=== PATIENT | female | born 1975 | race Two or more races ===

== ENCOUNTER 2017-07-26 06:31 | Day surgery (SDC) | payer BC ==
[~2017-07-26] VITALS: Ht 167.6 cm; Wt 104.3 kg
[2017-07-26] VITALS (10 sets, daily range): BP systolic 108–137; BP diastolic 62–82
[2017-07-26] MEDS ORDERED: LR 1000ml 1,000 ML IVLG SCH ×2 (07:00→09:23)
[2017-07-26] MEDS ORDERED: BUTALB-ACETAMI1 EAC1 PO (07:17)
[2017-07-26] MEDS ORDERED: MAXALT10 MG PO (07:17)
[2017-07-26] MEDS ORDERED: Propofol 200mg/20ml IV ONE (08:00)
[2017-07-26] MEDS ORDERED: fentaNYL 100 mcg/2 mL IV ONE (08:00)
[2017-07-26] MEDS ORDERED: Midazolam 2mg/2ml Inj ONE (08:00)
[2017-07-26] MEDS ORDERED: LR 1000ml ONE (08:00)
--- NOTE | 2017-07-26 09:04 | Pre-Procedure Note/Attestation ---
Pre-Procedure Note/Attestation Complete Prior to Procedure Planned Procedure: not applicable Procedure Narrative: Colon Indications for Procedure Pre-Operative Diagnosis: Screening, stool urgency and frequency Attestation I attest that I discussed the nature of the procedure; its benefits; risks and complications; and alternatives (and the risks and benefits of such alternatives ), prior to the procedure, with the patient (or the patient's legal farm loan representative). I attest that, if there was a reasonable possibility of needing a blood transfusion, the patient (or the patient's legal farm loan representative) was given the [facility] standardized written summary, pursuant to the Nikolai W[place]zek[place] Blood Safety Act ([place] Health and Safety Code # 1645, as amended). I attest that I re-evaluated the patient just prior to the surgery and that there has been no change in the patient's H&P, except as documented below: Vicente Dillon MD Jul 26, 2017 09:03
--- NOTE | 2017-07-26 09:06 | Short Stay Surgery H&P ---
History of Present Illness History of Present Illness HPI Mayco Solorio is a 41 year old female who was admitted on for Hx Of Colon Cancer Patient History Allergies: Coded Allergies: CEPHALEXIN (Verified Adverse Reaction, Severe, 07/26/17) DIARRHEA,ABD PAIN Medication History Scheduled Butalb/Acetaminophen/Caffeine (Rnfaoc-[place]-Yuse 50-325-40), 1 EACH PO NEEDED, (Reported) Rizatriptan Benzoate (Maxalt), 10 MG PO NEEDED, (Reported) Medication History Narrative See typed H&P Physical Exam Vital Signs Last Vital Signs Date Time Temp Pulse Resp B/P (MAP) Pulse Ox O2 Delivery O2 Flow Rate FiO2 07/26/17 07:21 98.4 66 20 118/73 98 Room Air 98.4 Labs Laboratory Tests Test 07/26/17 06:40 Urine HCG, Qualitative Negative (NEGATIVE) Plan Attestation Are the patient's medical conditions optimized for surgery? Vicente Dillon MD Jul 26, 2017 09:06
--- NOTE | 2017-07-26 09:19 | Anethesia Preoperative Eval ---
Anesthesia Pre-op PMH/ROS General Date of Evaluation: Jul 26, 2017 Time of Evaluation: 08:56 Anesthesiologist: Jaylon ASA Score: ASA 2 Mallampati Score Class I : Soft palate, uvula, fauces, pillars visible Class II: Soft palate, uvula, fauces visible Class III: Soft palate, base of uvula visible Class IV: Only hard plate visible Mallampati Classification: Class III Surgeon: Alma Diagnosis: Abdominal pain Surgical Procedure: Colonoscopy Anesthesia History: none Family History: no anesthesia problems Allergies: Coded Allergies: CEPHALEXIN (Verified Adverse Reaction, Severe, 07/26/17) DIARRHEA,ABD PAIN Medications: see eMAR Past Medical History Cardiovascular: Denies: HTN, CAD, [place], valve dz, arrhythmia, other Pulmonary: Denies: asthma, COPD, ENA, other Gastrointestinal/Genitourinary: Reports: GERD; Denies: CRI, ESRD, other Neurologic/Psychiatric: Reports: depression/anxiety; Denies: dementia, CVA, TIA, other Endocrine: Denies: DM, hypothyroidism, steroids, other HEENT: Denies: cataract (L), cataract (R), glaucoma, [place] (L), [place] (R), other Hematology/Immune: Denies: anemia, DVT, bleeding disorder, other Musculoskeletal/Integumentary: Denies: OA, RA, DJD, DDD, edema, other Other: obesity PMH Narrative: as above PSxH Narrative: Anesthesia Pre-op Phys. Exam Physician Exam Last Vital Signs Date Time Temp Pulse Resp B/P (MAP) Pulse Ox O2 Delivery O2 Flow Rate FiO2 07/26/17 07:21 98.4 66 20 118/73 98 Room Air 98.4 Constitutional: NAD Neurologic: CN 2-12 intact Cardiovascular: RRR, no M/R/G Respiratory: CTA Gastrointestinal: other - obesity Airway Exam Mallampati Score: Class III MO: limited Neck: short ROM: full Teeth: intact Dentures: no upper, no lower Anesthesia Pre-op A/P Labs Urine Test Test 07/26/17 06:40 Urine HCG, Qualitative Negative (NEGATIVE) Risk Assessment & Plan Assessment: ASA 2 Plan: MAC Pre-Antibiotics Drug: none Freddie Iyer MD Jul 26, 2017 09:19
[2017-07-26] MEDS ORDERED: fentaNYL 100 mcg/2 mL IV PRN (09:22)
[2017-07-26] MEDS ORDERED: DiphenhydrAMINE 50mg/ml Inj IVP PRN (09:23)
--- NOTE | 2017-07-26 10:22 | Immediate Post-Op Evaluation ---
Immediate Post-Op Evalulation Immediate Post-Op Evalulation Procedure: Colonoscopy, polypectomy Date of Evaluation: Jul 26, 2017 Time of Evaluation: 10:21 IV Fluids: 800 Blood Products: none Estimated Blood Loss: none Urinary Output: none Blood Pressure Systolic: 102 Blood Pressure Diastolic: 56 Pulse Rate: 67 Respiratory Rate: 20 O2 Sat by Pulse Oximetry: 99 Temperature (Fahrenheit): 97.6 Pain Score (1-10): 2 Nausea: No Vomiting: No Complications none Patient Status: awake, patent, none Hydration Status: adequate Freddie Iyer MD Jul 26, 2017 10:22
--- NOTE | 2017-07-26 11:47 | 48 Hour Post Anesthesia Eval ---
Post Anesthesia Evaluation Procedure: Colonoscopy, polypectomy Date of Evaluation: Jul 26, 2017 Time of Evaluation: 11:46 Blood Pressure Systolic: 128 0: 62 Pulse Rate: 74 Respiratory Rate: 22 Temperature (Fahrenheit): 97.6 O2 Sat by Pulse Oximetry: 98 Airway: patent Nausea: No Vomiting: No Pain Intensity: 1 Hydration Status: adequate Cardiopulmonary Status: stable Mental Status/LOC: patient returned to baseline Follow-up Care/Observations: n/a Post-Anesthesia Complications: none Follow-up care needed: ready to discharge Freddie Iyer MD Jul 26, 2017 11:47
--- NOTE | 2017-07-26 23:15 | Operative Note - Dictated ---
DATE OF OPERATION: 07/26/2017 PROCEDURES: Colonoscopy with biopsy, Endoclip placement, and snare polypectomy. SURGEON: Vicente Dillon M.D. ANESTHESIA: Please see the separate anesthesiologist notes for details. PRE-ENDOSCOPIC DIAGNOSES: 1. Screening colonoscopy. 2. Stool urgency and frequency, rule out inflammatory bowel disease. POST-ENDOSCOPIC DIAGNOSES: 1. Normal terminal ileum to about 5 cm. 2. Status post random biopsies of the right colon, left colon, and sigmoid colon. 3. Endoclip placed in one of the proximal colonic biopsy site, which resulted in a 5 mm mucosal tear off without evidence of perforation. 4. Mild sigmoid diverticulosis. 5. Two 5 to 6 mm pedunculated polyp in the transverse colon at about 90 cm zack status post hot snare polypectomy. 6. No obvious evidence of inflammatory bowel disease seen. DESCRIPTION OF PROCEDURE: The procedure, its risks, indications, alternatives, and possible complications including, but not limited to bleeding, infection, perforation, , and anesthesia complications were explained to the patient and informed consent was obtained. The patient was then sedated in the left lateral decubitus position and a rectal exam was done. Subsequently, colonoscope was introduced into the rectum and advanced to the terminal ileum. The colonic contour was somewhat tortuous. The colonoscope was then gradually withdrawn and the mucosa was examined carefully. Findings were as listed above. The patient was sent to recovery in good condition. COMPLICATIONS: None. ASSESSMENT: The above examination was notable for two polyps, which were removed. Visual examination of the colonic and terminal ileal mucosa did not reveal any evidence of inflammatory bowel disease. However, biopsies will be evaluated to rule out microscopic disease. RECOMMENDATIONS: 1. Follow up biopsy results. 2. Outpatient followup. Thank you for asking me to participate in the care of this patient. Vicente Dillon M.D. DR: KOSTAS JOB#: [id number] CC: Kyrie Cota M.D.
--- NOTE | 2017-07-28 13:00 | Endoscopy Procedure Note ---
Endoscopy Procedure Note General Indication for Procedure: screen, urgency Procedures Performed: colonoscopy Operative Findings/Diagnosis: tic polyp Specimen: yes Pt Tolerated Procedure Well: Yes Estimated Blood Loss: none Anesthesia Anesthesiologist: see report Anesthesia: MAC Medications Medication Given: see anesthesia record Inserted Devices Implant(s) used?: No GI Core Measures 50 yrs or older w/o bx or poly: Not Applicable 10yrs. F/U not recommended: Not Applicable If not recommended, why?: Vicente Dillon MD Jul 28, 2017 13:00
--- NOTE | 2017-07-28 13:01 | Brief Operative Note ---
Immediate Post Operative Note Operative Note Chief Complaint: urgency Pre-op Diagnosis: Screening, stool urgency and frequency Procedure: colon bx Post-op Diagnosis: 1. Normal terminal ileum to about 5 cm. 2. Status post random biopsies of the right colon, left colon, and sigmoid colon. 3. Endoclip placed in one of the proximal colonic biopsy site, which resulted in a 5 mm mucosal tear off without evidence of perforation. 4. Mild sigmoid diverticulosis. 5. Two 5 to 6 mm pedunculated polyp in the transverse colon at about 90 cm zack status post hot snare polypectomy. 6. No obvious evidence of inflammatory bowel disease seen. Surgeon: anu Anesthesiologist: see report Anesthesia: MAC Specimen: yes Complications: none Condition: stable Fluids: recorded Estimated Blood Loss: none Drains: none Implant(s) used?: No Vicente Dillon MD Jul 28, 2017 13:01
== END 2017-07-26 11:30 | disposition home or self-care (01) ==
LOC: GAS 06:31
DX: Z12.11 Encounter for screening for malignant neoplasm of colon (principal); K57.90 Diverticulosis of intestine, part unspecified, without perforation or abscess without bleeding; K63.5 Polyp of colon; Z85.038 Personal history of other malignant neoplasm of large intestine; Z88.8 Allergy status to other drugs, medicaments and biological substances; Z80.0 Family history of malignant neoplasm of digestive organs; K21.9 Gastro-esophageal reflux disease without esophagitis; F32.9 Major depressive disorder, single episode, unspecified; F41.9 Anxiety disorder, unspecified
CPT/HCPCS: 45380; 81025; J2250; J2704; J3010; J7120